=== PATIENT | male | born 1955 | race African-American/Black ===

== ENCOUNTER 2018-06-13 05:55 | Emergency (ER) | payer MEDICAID ==
[~2018-06-13] VITALS: Ht 180.3 cm; Wt 72.7 kg
[2018-06-13 05:59] VITALS: Ht 180.3 cm; Wt 72.7 kg
--- NOTE | 2018-06-13 07:09 | ERD ---
ER Documentation Chief Complaint Chief Complaint bib [id number], found lying in the sidewalk, etoh HPI 63-year-old male who presents to the emergency room after being found laying on the sidewalk. Patient reports drinking alcohol earlier this evening. He states that he is homeless. He denies any falls or injury. The patient has no complaints currently. He denies any suicidal or homicidal ideation. He just states hunger. No other issues are noted. ROS All systems reviewed and are negative except as per history of present illness. Allergies Allergies: Coded Allergies: No Known Drug Allergies (Verified Allergy, Unknown, 06/13/18) FmHx Family History: No diabetes Physical Exam Vitals Vital Signs Date Temp Pulse Resp B/P (MAP) Pulse Ox O2 O2 Flow FiO2 Time Delivery Rate 06/13/18 98.3 82 18 143/94 100 05:59 (110) Physical Exam General: Well developed, well nourished, no acute distress, smells of alcohol Head: Normocephalic, atraumatic. Eyes: Pupils equally reactive, EOM intact ENT: Moist mucous membranes Neck: Supple, no lymphadenopathy Respiratory: Lungs clear bilaterally, no distress Cardiovascular: RRR, no murmurs, rubs, or gallops Abdominal: Soft, non-tender, non-distended, no peritoneal signs : Deferred MSK: No edema, no unilateral swelling, 5/5 strength Neurologic: Alert and oriented, moving all extremities, normal speech, no focal weakness, no cerebellar signs Skin: No rash, no obvious evidence of trauma Psych: Normal mood, no suicidal ideation Procedures/MDM EKG, MONITORS, & DIAGNOSTIC IMAGING: None Required PROCEDURES: None Required MEDICAL DECISION MAKING: The patient's presentation is consistent with acute alcohol intoxication, mild and resolving. No evidence of traumatic injury. I have a much lower clinical concern for clinically significant traumatic brain injury, meningitis, significant electrolyte disturbance. The patient's workup will include a medical screening examination as well as observation for sobriety. The patient's presentation is most consistent with acute alcohol intoxication leading to acute encephalopathy. The patient is protecting their airway. The patient has no signs or symptoms concerning for impending respiratory failure and does not require intubation at this time. The patient will require observation in the emergency room to allow for metabolization. Once the patient is able to ambulate on their own accord, navigate the community the patient can be safely discharged from the emergency room. ER COURSE: Patient is asymptomatic in the emergency room setting. He will be given food. Home was discharged will be initiated and geriatric social work professor consultation has been made. OBSERVATION: Observation Note: Indication: Alcohol Intoxication Duration: Greater than 4 hours Family history: As above The patient was observed with serial exams over the above timeframe. The patient continued to be well-appearing, and observation continued without complication. CONSULTATION: director of managed services DISPOSITION PLAN: Patient is appropriate, ambulatory, awaiting geriatric social work professor evaluation. Departure Diagnosis: Primary Impression: Acute alcohol intoxication Complication of substance-induced condition: uncomplicated Qualified Codes: F10.920 - Alcohol use, unspecified with intoxication, uncomplicated Additional Impressions: Homelessness Hunger Encounter type: initial encounter Qualified Codes: T73.0XXA - Starvation, initial encounter Condition: Stable RONNELL CRUZ MD Jun 13, 2018 07:09
[2018-06-13 11:00] VITALS: BP 136/74; PULSE 86; RESP 20
[2018-06-13] MEDS ORDERED: LEVE100018 PO (16:44)
[2018-06-13] MEDS ORDERED: PHEN300C2 PO (16:45)
[2018-06-13] MEDS ORDERED: LEVE-5 PO (18:37)
== END 2018-06-13 11:00 | disposition home or self-care (01) ==
LOC: E/R 05:55
DX: F10.920 Alcohol use, unspecified with intoxication, uncomplicated (principal); R40.2142 Coma scale, eyes open, spontaneous, at arrival to emergency department; R40.2362 Coma scale, best motor response, obeys commands, at arrival to emergency department; R40.2252 Coma scale, best verbal response, oriented, at arrival to emergency department; T73.0XXA Starvation, initial encounter; Z59.0 Homelessness
CPT/HCPCS: 99283

== ENCOUNTER 2018-06-13 13:41 | Inpatient (IN) | payer MEDICAID ==
[~2018-06-13] VITALS: Ht 180.3 cm; Wt 64.5 kg
[2018-06-13] MEDS ORDERED: SOD CHLORIDE 0.9% 500 ML IV STA (13:48)
[2018-06-13] MEDS ORDERED: LEVETIRACETAM 1000 MG (PMX) 100 ML IVPB ONE (16:00)
[2018-06-13] MEDS ORDERED: LEVE100018 PO (16:44)
[2018-06-13] MEDS ORDERED: PHEN300C2 PO (16:45)
[2018-06-13] MEDS ORDERED: ALBUTEROL/IPRATROPIUM (NEB) 3 ML AMP HHN PRN (18:00)
[2018-06-13] MEDS ORDERED: morphine 2 MG INJ IV PRN (18:00)
[2018-06-13] MEDS ORDERED: DOCUSATE SODIUM 100 MG CAP PO PRN (18:00)
[2018-06-13] MEDS ORDERED: ONDANSETRON 4 MG INJ IV PRN ×2 (18:00→18:30)
[2018-06-13] MEDS ORDERED: NACL 0.9% 3 ML SYG IV SCH (18:00)
[2018-06-13] MEDS ORDERED: LORAZEPAM 2 MG INJ IV PRN (18:00)
[2018-06-13] MEDS ORDERED: NITROGLYCERIN (SL) 0.4 MG TAB SL PRN (18:00)
[2018-06-13] MEDS ORDERED: ACETAMINOPHEN 325 MG TAB PO PRN ×2 (18:00→18:30)
[2018-06-13] MEDS ORDERED: MAGNESIUM HYDROXIDE 30ML CUP PO PRN (18:00)
[2018-06-13] MEDS ORDERED: HYDROCODONE/APAP (5/325) TAB PO PRN (18:00)
[2018-06-13] MEDS ORDERED: hydrALAzine 20 MG INJ IV PRN (18:00)
[2018-06-13] MEDS ORDERED: LEVE-5 PO (18:37)
--- NOTE | 2018-06-13 19:20 | ERD ---
ER Documentation Chief Complaint Chief Complaint MEGAN D/T WITNESSED SEIZURE HPI This is a 63-year-old male with a past medical history of a seizure disorder brought in by ambulance for the second time today after a witnessed breakthrough seizure. The patient was reportedly found lying on the sidewalk this morning. He admitted to drinking a few beers last night. He is not confused when he arrived this morning. He reported that he was tired and hungry and had no other complaints. The patient did not report a seizure disorder this morning and instead preferred discharge. He was observed for at least 4 hours. He was ambulatory without issue and was discharged in stable condition. 1-2 hours after discharge, the patient reportedly had a witnessed tonic-clonic shaking event. It lasted 1-2 minutes before resolving on its own. The patient fell forward and struck his head. He sustained hematomas and abrasions to the left eyelid and right lower lip. The patient was reportedly confused after the event, but he is alert and oriented now. He has no focal deficits. He has no weakness or numbness or tingling to the face or extremities. The patient endorses drinking approximately 2 peers daily. He does not endorse significant alcohol abuse. He does admit to polysubstance abuse. He denies tobacco use. The patient reports difficulty with compliance of his seizure medications due to homelessness. He has not had an opportunity to follow-up with a neurologist in quite some time, and he typically gets his prescriptions from the emergency department. The patient has been out of his antiseizure medications for the last 1-2 days. The patient denies feeling sick recently. The patient denies fever or chills. The patient has had no headache or vision changes. The patient does not endorse neck or back pain. The patient denies lightheadedness or dizziness. The patient has had no chest pain or trouble breathing. The patient denies nausea or vomiting. The patient denies abdominal pain. The patient denies changes to bowel movements or urination. ROS All systems reviewed and are negative except as per history of present illness. Medications Home Meds Reported Medications Phenytoin* Sodium Extended (Dilantin*) 300 Mg Capsule, 300 MG PO HS, CAP 06/13/18 Levetiracetam* (Keppra*) 1,000 Mg Tablet, 1000 MG PO BID, TAB 06/13/18 Allergies Allergies: Coded Allergies: No Known Drug Allergies (Verified Allergy, Unknown, 06/13/18) PMhx/Soc Medical and Surgical Hx: pt denies Surgical Hx History of Surgery: No Hx Neurological Disorder: Yes Hx Respiratory Disorders: No (Seizure disorder) Hx Cardiac Disorders: No Hx Psychiatric Problems: No Hx Miscellaneous Medical Probl: No Hx Alcohol Use: Yes (Reportedly occasional) Hx Substance Use: Yes (Polysubstance abuse) Hx Tobacco Use: No FmHx Family History: No diabetes Physical Exam Vitals Vital Signs Date Temp Pulse Resp B/P (MAP) Pulse Ox O2 O2 Flow FiO2 Time Delivery Rate 06/13/18 98.4 88 16 140/89 95 Room Air 15:30 (106) 06/13/18 98.4 99 16 144/86 97 13:45 (105) Physical Exam Const: No apparent distress, well-developed, well-nourished Head: Normocephalic. Left eyebrow hematoma. Right lower lip hematoma. Eyes: Normal Conjunctiva. Extraocular movements intact. Pupils equal, round and reactive to light ENT: Normal External Ears, Nose and Mouth. Neck: Full range of motion. No meningismus. Resp: Clear to auscultation bilaterally, No wheezes, rales or rhonchi Cardio: Regular rate and rhythm. No murmurs, rubs or gallops Abd: Soft, non tender, non distended. Normal bowel sounds Skin: No petechiae or rashes Back: No midline tenderness. No CVA tenderness Ext: No cyanosis, or edema Neur: Awake and alert, oriented 4. Cranial nerves intact. No facial droop. Normal strength, sensation and coordination. Psych: Normal Mood and Affect Result Diagram: 06/13/18 1401 06/13/18 1401 Results 24 hrs Laboratory Tests Test 06/13/18 14:01 06/13/18 15:38 White Blood Count 7.2 10^3/ul Red Blood Count 4.65 10^6/ul Hemoglobin 12.7 g/dl Hematocrit 39.9 % Mean Corpuscular Volume 85.8 fl Mean Corpuscular Hemoglobin 27.3 pg Mean Corpuscular Hemoglobin Concent 31.8 g/dl Red Cell Distribution Width 12.8 % Platelet Count 142 10^3/UL Mean Platelet Volume 11.7 fl Immature Granulocytes % 0.600 % Neutrophils % 71.7 % Lymphocytes % 14.3 % Monocytes % 10.8 % Eosinophils % 2.2 % Basophils % 0.4 % Nucleated Red Blood Cells % 0.0 /100WBC Immature Granulocytes # 0.040 10^3/ul Neutrophils # 5.2 10^3/ul Lymphocytes # 1.0 10^3/ul Monocytes # 0.8 10^3/ul Eosinophils # 0.2 10^3/ul Basophils # 0.0 10^3/ul Nucleated Red Blood Cells # 0.0 10^3/ul Prothrombin Time 12.4 Sec Prothrombin Time Ratio 1.0 INR International Normalized Ratio 0.91 Sodium Level 140 mmol/L Potassium Level 3.9 mmol/L Chloride Level 103 mmol/L Carbon Dioxide Level 23 mmol/L Anion Gap 14 Blood Urea Nitrogen 15 mg/dl Creatinine 0.81 mg/dl Est Glomerular Filtrat Rate mL/min > 60 mL/min Glucose Level 93 mg/dl Calcium Level 9.1 mg/dl Total Bilirubin 0.2 mg/dl Direct Bilirubin 0.00 mg/dl Indirect Bilirubin 0.2 mg/dl Aspartate Amino Transf (AST/SGOT) 61 IU/L Alanine Aminotransferase (ALT/SGPT) 25 IU/L Alkaline Phosphatase 122 IU/L Total Protein 6.9 g/dl Albumin 3.6 g/dl Globulin 3.30 g/dl Albumin/Globulin Ratio 1.09 Free Thyroxine 2.05 ng/dl Phenytoin (Dilantin) Level < 3.0 ug/ml Valproic Acid (Depakene) Level < 10 ug/ml Ethyl Alcohol Level < 10.0 mg/dl Urine Color YELLOW Urine Clarity CLEAR Urine pH 6.0 Urine Specific [place] 1.012 Urine Ketones NEGATIVE mg/dL Urine Nitrite NEGATIVE mg/dL Urine Bilirubin NEGATIVE mg/dL Urine Urobilinogen 2+ mg/dL Urine Leukocyte Esterase NEGATIVE Sintia/ul Urine Microscopic RBC 4 /HPF Urine Microscopic WBC 4 /HPF Urine Bacteria FEW /HPF Urine Mucus FEW /HPF Urine Hemoglobin 1+ mg/dL Urine Glucose NEGATIVE mg/dL Urine Total Protein NEGATIVE mg/dl Urine Opiates Screen Negative Urine Barbiturates Negative Urine Amphetamines Screen POSITIVE Urine Benzodiazepines Screen Negative Urine Cocaine Screen Positive Urine Cannabinoids Negative Current Medications Medications Dose Sig/Shaka Start Time Status Last (Trade) Ordered Route PRN Stop Time Admin Dose Reason Admin Sodium 500 ml @ Q1H STAT 06/13/18 DC 06/13/18 Chloride 500 mls/hr IV 13:48 06/13/18 14:05 14:47 100 ml @ ONCE ONCE 06/13/18 DC 06/13/18 Levetiracetam 400 mls/hr IVPB 16:00 06/13/18 16:20 16:14 IV Flush 3 ml PER 06/13/18 (NS 3 ml) PROTOCOL IV 18:00 Ondansetron 4 mg Q6H PRN 06/13/18 HCl (Zofran IV 18:00 Inj) NAUSEA/VOMITI NG 650 mg Q6H PRN 06/13/18 Acetaminophen PO .PAIN 1-3 18:00 (Tylenol OR TEMP Tab) 1 tab Q6H PRN 06/13/18 Acetaminophen PO .MOD PAIN 18:00 / 4-6 Hydrocodone Bitart ([place] (5/325)) Morphine 2 mg Q4H PRN 06/13/18 Sulfate IV .SEVERE 18:00 (morphine) PAIN 7-10 Docusate 100 mg Q12H PRN 06/13/18 Sodium PO 18:00 (Colace) .CONSTIPATION Magnesium 30 ml DAILY PRN 06/13/18 Hydroxide PO 18:00 (Milk Of Mag) .CONSTIPATION Heparin 5,000 unit Q12 SC 06/13/18 Sodium 21:00 (Porcine) (Heparin (5000 Units/1ml)) Sodium 1,000 ml @ [id number] IV 06/13/18 Chloride 75 mls/hr 17:33 Lorazepam 0.5 mg Q6H PRN 06/13/18 (Ativan) IV ANXIETY 18:00 Albuterol/ 3 ml Q4H RESP 06/13/18 Ipratropium THERAPY PRN 18:00 (Duoneb) HHN SHORTNESS OF BREATH Hydralazine 10 mg Q6H PRN 06/13/18 HCl IV ELEVATED 18:00 (Apresoline) BLOOD PRESSURE 1 tab Q5M PRN 06/13/18 Nitroglycerin SL ANGINA 18:00 (Nitroglyceri n (Sl Tab) 0.4 Mg) Phenytoin 300 mg HS PO 06/13/18 (Dilantin) 21:00 100 ml @ Q12 IVPB 06/13/18 DC Levetiracetam 400 mls/hr 21:00 06/13/18 21:00 100 ml @ Q12H IVPB 06/14/18 Levetiracetam 400 mls/hr 05:00 Ondansetron 4 mg ER BRIDGE 06/13/18 HCl (Zofran PRN IV 18:30 06/14/18 Inj) NAUSEA/VOMITI 18:29 NG 650 mg ER BRIDGE 06/13/18 Acetaminophen PRN PO 18:30 06/14/18 (Tylenol .MILD PAIN 18:29 Tab) 1-3 OR TEMP Procedures/MDM MDM The patient's presentation warrants further investigation. Previous medical records, if available, were reviewed. LABS The patient's laboratory testing was obtained and reviewed. No emergent treatment was required unless described below. CBC: No E/o of systemic infection or severe anemia or thrombocytopenia. Mild normocytic anemia, nonemergent Chemistry: No E/o severe acidosis or alkalosis or renal failure or diabetic ketoacidosis. Transaminitis, potentially reactive. PT/INR: No E/o significant coagulopathy Urine: No E/o acute infection or hematuria Tox: No E/o alcohol abuse. E/o amphetamine and cocaine abuse. No E/o sa licylate or acetaminophen use. IMAGING Imaging and Radiology interpretation reviewed. CXR FINDINGS: Cardiomediastinal silhouette appears normal. There are atherosclerotic calcifications in the thoracic aorta. Pulmonary vasculature appears normal. Lung vaughn appear clear. Costophrenic angles are well defined. Previous shoulder arthroplasty on the left. IMPRESSION: Atherosclerotic calcifications in the thoracic aorta. No evidence for active cardiopulmonary disease. Electronically viewed and signed by Physician Fabienne on 06/13/2018 14:36 CT Head FINDINGS: There is no intracranial hemorrhage, mass effect, or midline shift. No extra-axial fluid collection is seen. The ventricles and sulci are normal in size and configuration. The density of the brain is normal, and the ayala white matter differentiation appears well-preserved. The visualized paranasal sinuses and osseous structures are grossly unremarkable. IMPRESSION: No acute intracranial process identified. Electronically viewed and signed by Physician Fabienne on 06/13/2018 14:35 TREATMENT/DISPOSITION The patient presents for a seizure disorder with difficulty with compliance on his antiepileptic medications due to homelessness. While there is no witnessed seizure event this morning, I am concerned that this is the patient's second seizure today. The patient does endorse increasing seizure events over the last few weeks, most recently 1 week ago prior to the events this morning. I am co ncerned about the patient's methamphetamine and cocaine abuse, as possible etiologies of a decreased seizure threshold. The patient was given a bolus of Keppra and IV fluids in the emergency department. Given the patient's significant difficulty with maintenance of his seizure disorder in the outp atient setting, I am very concerned that the patient is at risk of trauma or injury if discharged. I no longer feel that he is safe for outpatient management and may benefit from inpatient treatment and possible neurology assessment. I do not suspect a metabolic etiology of his symptoms. I do not suspect a cardiopulmonary process. The patient CT scan does not reveal any evidence of cerebral ischemia or intracranial hemorrhage. I doubt an alternative neurologic etiology. I do not see evidence of an infectious process. At this time, I feel that the patient requires admission for further evaluation and management. The patient will be admitted to panel in accordance with the patient's insurance. The patient was accepted by Dr. Fall at 5:07 PM on June 13, 2018. Disclaimer: Inadvertent spelling and grammatical errors are likely due to EHR/dictation software use and do not reflect on the overall quality of patient care. Note that the electronic time recorded on this note does not necessarily reflect the actual time of the patient encounter. Departure Diagnosis: Primary Impression: Breakthrough seizure Additional Impressions: Seizure disorder Noncompliance with medications Methamphetamine abuse Cocaine abuse Normocytic anemia Transaminitis Condition: Serious MASOOD GILES MD Jun 13, 2018 19:08
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
[2018-06-13] MEDS: SOD CHLORIDE 0.45% 1,000 ML IV SCH (19:45)
[2018-06-13 21:00] VITALS: BP 145/84; PULSE 82; PULSE 84; RESP 20
[2018-06-13] MEDS ORDERED: LEVETIRACETAM 1000 MG (PMX) 100 ML IVPB SCH (21:00)
[2018-06-13 21:20] VITALS: Ht 180.3 cm; Wt 64.5 kg
[2018-06-13] MEDS: PHENYTOIN 100 MG CAP PO SCH (21:57)
[2018-06-13] MEDS: HEPARIN 5,000 UNIT/1 ML VIAL SC SCH (22:01)
[2018-06-14] VITALS (11 sets, daily range): BP systolic 120–151; BP diastolic 70–92; PULSE 71–90; RESP 18–20
[2018-06-14] MEDS ORDERED: LEVETIRACETAM 1000 MG (PMX) 100 ML IVPB SCH (05:00)
[2018-06-14] MEDS: SOD CHLORIDE 0.45% 1,000 ML IV SCH ×2 (06:53→08:55)
[2018-06-14] MEDS: HEPARIN 5,000 UNIT/1 ML VIAL SC SCH ×2 (09:01→20:45)
--- NOTE | 2018-06-14 10:37 | CONS ---
Assessment/Plan Assessment/Plan Hospital Course 63 M c/ longstanding Hx of epilepsy and other comorbidities, who presents for evaluation following a seizure cluster... He reports recent medication noncompliance -- the likely underlying cause of his seizure cluster.. Head CT is unrevealing UDS - cocaine and amphetamines UA neg Mg, Na, Gluc, Phos wnl P: Agree w/ resuming Keppra; at 500mg bid Load Dilantin 1g iv x1, then continue Dilantin 300mg hs Ativan iv prn prolonged seizure of cluster Encourage sobriety Other management per primary Consultation Date/Type/Reason Admit Date/Time Jun 13, 2018 at 18:15 Type of Consult Neurology Date/Time of Note DATE: 06/14/18 TIME: 10:37 Exam/Review of Systems Exam Vitals Vital Signs Date Temp Pulse Resp B/P (MAP) Pulse Ox O2 O2 Flow FiO2 Time Delivery Rate 06/14/18 86 08:00 06/14/18 98.3 20 140/85 97 Room Air 07:44 (103) Intake and Output 06/13/18 06/13/18 06/14/18 1515:00 23:00 07:00 IntakeIntake Total 856 ml OutputOutput Total 1000 ml BalanceBalance -144 ml Results Result Diagram: 06/14/18 0549 06/14/18 0549 Results 24hrs Laboratory Tests Test 06/13/18 14:01 06/13/18 15:38 06/14/18 05:49 White Blood Count 7.2 5.0 # Red Blood Count 4.65 L 4.38 L Hemoglobin 12.7 L 12.1 L Hematocrit 39.9 L 37.6 L Mean Corpuscular Volume 85.8 85.8 Mean Corpuscular Hemoglobin 27.3 L 27.6 L Mean Corpuscular Hemoglobin Concent 31.8 L 32.2 Red Cell Distribution Width 12.8 12.8 Platelet Count 142 126 L Mean Platelet Volume 11.7 H 12.0 H Immature Granulocytes % 0.600 H 0.400 Neutrophils % 71.7 51.4 Lymphocytes % 14.3 L 32.7 Monocytes % 10.8 11.7 H Eosinophils % 2.2 3.2 Basophils % 0.4 0.6 Nucleated Red Blood Cells % 0.0 0.0 Immature Granulocytes # 0.040 H 0.020 Neutrophils # 5.2 2.5 Lymphocytes # 1.0 1.6 Monocytes # 0.8 0.6 Eosinophils # 0.2 0.2 Basophils # 0.0 0.0 Nucleated Red Blood Cells # 0.0 0.0 Prothrombin Time 12.4 Prothrombin Time Ratio 1.0 INR International Normalized Ratio 0.91 Sodium Level 140 138 Potassium Level 3.9 3.6 Chloride Level 103 104 Carbon Dioxide Level 23 27 Anion Gap 14 H 7 Blood Urea Nitrogen 15 11 Creatinine 0.81 0.75 Est Glomerular Filtrat Rate mL/min > 60 > 60 Glucose Level 93 73 Calcium Level 9.1 8.6 Total Bilirubin 0.2 Direct Bilirubin 0.00 Indirect Bilirubin 0.2 Aspartate Amino Transf (AST/SGOT) 61 H Alanine Aminotransferase (ALT/SGPT) 25 Alkaline Phosphatase 122 H Total Protein 6.9 Albumin 3.6 Globulin 3.30 H Albumin/Globulin Ratio 1.09 Free Thyroxine 2.05 Phenytoin (Dilantin) Level < 3.0 L Valproic Acid (Depakene) Level < 10 L Ethyl Alcohol Level < 10.0 H Urine Color YELLOW Urine Clarity CLEAR Urine pH 6.0 Urine Specific [place] 1.012 Urine Ketones NEGATIVE Urine Nitrite NEGATIVE Urine Bilirubin NEGATIVE Urine Urobilinogen 2+ H Urine Leukocyte Esterase NEGATIVE Urine Microscopic RBC 4 Urine Microscopic WBC 4 Urine Bacteria FEW A Urine Mucus FEW A Urine Hemoglobin 1+ H Urine Glucose NEGATIVE Urine Total Protein NEGATIVE Urine Opiates Screen Negative Urine Barbiturates Negative Urine Amphetamines Screen POSITIVE Urine Benzodiazepines Screen Negative Urine Cocaine Screen Positive Urine Cannabinoids Negative Hemoglobin A1c 5.3 Phosphorus Level 3.9 Magnesium Level 1.8 Triglycerides Level 65 Cholesterol Level 157 LDL Cholesterol, Calculated 72 HDL Cholesterol 72 Cholesterol/HDL Ratio 2.1 Thyroid Stimulating Hormone (TSH) 0.841 Medications Medication Current Medications IV Flush (NS 3 ml) 3 ml PER PROTOCOL IV ; Start 06/13/18 at 18:00 Ondansetron HCl (Zofran Inj) 4 mg Q6H PRN IV NAUSEA/VOMITING; Start 06/13/18 at 18:00 Acetaminophen (Tylenol Tab) 650 mg Q6H PRN PO .PAIN 1-3 OR TEMP; Start 06/13/18 at 18:00 Acetaminophen/ Hydrocodone Bitart ([place] (5/325)) 1 tab Q6H PRN PO .MOD PAIN 4- 6; Start 06/13/18 at 18:00 Morphine Sulfate (morphine) 2 mg Q4H PRN IV .SEVERE PAIN 7-10 Last administered on 06/13/18at 19:45; Admin Dose 2 MG; Start 06/13/18 at 18:00 Docusate Sodium (Colace) 100 mg Q12H PRN PO .CONSTIPATION; Start 06/13/18 at 18:00 Magnesium Hydroxide (Milk Of Mag) 30 ml DAILY PRN PO .CONSTIPATION; Start 06/13/18 at 18:00 Heparin Sodium (Porcine) (Heparin (5000 Units/1ml)) 5,000 unit Q12 SC Last administered on 06/14/18at 09:01; Admin Dose 5,000 UNIT; Start 06/13/18 at 21:00 Sodium Chloride 1,000 ml @ 75 mls/hr [id number] IV Last administered on 06/14/18at 08:55; Admin Dose 75 MLS/HR; Start 06/13/18 at 17:33 Lorazepam (Ativan) 0.5 mg Q6H PRN IV ANXIETY; Start 06/13/18 at 18:00 Albuterol/ Ipratropium (Duoneb) 3 ml Q4H RESP THERAPY PRN HHN SHORTNESS OF BREATH; Start 06/13/18 at 18:00 Hydralazine HCl (Apresoline) 10 mg Q6H PRN IV ELEVATED BLOOD PRESSURE; Start 06/13/18 at 18:00 Nitroglycerin (Nitroglycerin (Sl Tab) 0.4 Mg) 1 tab Q5M PRN SL ANGINA; Start 06/13/18 at 18:00 Phenytoin (Dilantin) 300 mg HS PO Last administered on 06/13/18at 21:57; Admin Dose 300 MG; Start 06/13/18 at 21:00 Levetiracetam 100 ml @ 400 mls/hr Q12H IVPB Last administered on 06/14/18at 04:19; Admin Dose 400 MLS/HR; Start 06/14/18 at 05:00 Ondansetron HCl (Zofran Inj) 4 mg ER BRIDGE PRN IV NAUSEA/VOMITING; Start 06/13/18 at 18:30; Stop 06/14/18 at 18:29 Acetaminophen (Tylenol Tab) 650 mg ER BRIDGE PRN PO .MILD PAIN 1-3 OR TEMP; Start 06/13/18 at 18:30; Stop 06/14/18 at 18:29 Past Medical History Home Meds Reported Medications Levetiracetam* (Keppra*) 500 Mg Tablet, 500 MG PO BID, TAB 06/13/18 Phenytoin* Sodium Extended (Dilantin*) 300 Mg Capsule, 300 MG PO HS, CAP 06/13/18 Discontinued Reported Medications Levetiracetam* (Keppra*) 1,000 Mg Tablet, 1000 MG PO BID, TAB 06/13/18 Medications Current Medications IV Flush (NS 3 ml) 3 ml PER PROTOCOL IV ; Start 06/13/18 at 18:00 Ondansetron HCl (Zofran Inj) 4 mg Q6H PRN IV NAUSEA/VOMITING; Start 06/13/18 at 18:00 Acetaminophen (Tylenol Tab) 650 mg Q6H PRN PO .PAIN 1-3 OR TEMP; Start 06/13/18 at 18:00 Acetaminophen/ Hydrocodone Bitart ([place] (5/325)) 1 tab Q6H PRN PO .MOD PAIN 4- 6; Start 06/13/18 at 18:00 Morphine Sulfate (morphine) 2 mg Q4H PRN IV .SEVERE PAIN 7-10 Last administered on 06/13/18at 19:45; Admin Dose 2 MG; Start 06/13/18 at 18:00 Docusate Sodium (Colace) 100 mg Q12H PRN PO .CONSTIPATION; Start 06/13/18 at 18:00 Magnesium Hydroxide (Milk Of Mag) 30 ml DAILY PRN PO .CONSTIPATION; Start 06/13/18 at 18:00 Heparin Sodium (Porcine) (Heparin (5000 Units/1ml)) 5,000 unit Q12 SC Last administered on 06/14/18at 09:01; Admin Dose 5,000 UNIT; Start 06/13/18 at 21:00 Sodium Chloride 1,000 ml @ 75 mls/hr [id number] IV Last administered on 06/14/18at 08:55; Admin Dose 75 MLS/HR; Start 06/13/18 at 17:33 Lorazepam (Ativan) 0.5 mg Q6H PRN IV ANXIETY; Start 06/13/18 at 18:00 Albuterol/ Ipratropium (Duoneb) 3 ml Q4H RESP THERAPY PRN HHN SHORTNESS OF BREATH; Start 06/13/18 at 18:00 Hydralazine HCl (Apresoline) 10 mg Q6H PRN IV ELEVATED BLOOD PRESSURE; Start 06/13/18 at 18:00 Nitroglycerin (Nitroglycerin (Sl Tab) 0.4 Mg) 1 tab Q5M PRN SL ANGINA; Start 06/13/18 at 18:00 Phenytoin (Dilantin) 300 mg HS PO Last administered on 06/13/18at 21:57; Admin Dose 300 MG; Start 06/13/18 at 21:00 Levetiracetam 100 ml @ 400 mls/hr Q12H IVPB Last administered on 06/14/18at 04:19; Admin Dose 400 MLS/HR; Start 06/14/18 at 05:00 Ondansetron HCl (Zofran Inj) 4 mg ER BRIDGE PRN IV NAUSEA/VOMITING; Start 06/13/18 at 18:30; Stop 06/14/18 at 18:29 Acetaminophen (Tylenol Tab) 650 mg ER BRIDGE PRN PO .MILD PAIN 1-3 OR TEMP; Start 06/13/18 at 18:30; Stop 06/14/18 at 18:29 Allergies: Coded Allergies: No Known Drug Allergies (Verified Allergy, Unknown, 06/13/18) Social History Smoking Status: Current every day smoker SHELLI SCOTT NP Jun 14, 2018 10:37 JUAN DUMAS Jun 14, 2018 12:08
--- NOTE | 2018-06-14 11:43 | PN ---
Date/Time of Note Date/Time of Note DATE: 06/14/18 TIME: 11:38 Assessment/Plan VTE Prophylaxis Risk score (from Ns)>0 risk: 1 SCD applied (from Ns): No SCD contraindicated: other Pharmacological prophylaxis: heparin Lines/Catheters IV Catheter Type (from [facility]): Peripheral IV Urinary Cath still in place: No Assessment/Plan Hospital Course S: Per nursing staff patient had no seizure activity overnight nor this morning. Seen by neurology team this morning. Waiting for EEG to be performed. O: VS - see below PHYSICAL EXAMINATION: GENERAL: lying in bed, answering questions appropriately. He has a bandage on the side of his head; otherwise in no acute distress HEENT: Pupils are equal, round, react to light. Extraocular muscles are intact. NECK: Supple. No thyromegaly. LUNGS: Clear to auscultation bilaterally. CARDIOVASCULAR: S1, S2 heard. No rubs or gallops. ABDOMEN: Soft, nontender, nondistended. Normal bowel sounds. No rebound or guarding. MUSCULOSKELETAL: No lower extremity edema bilaterally. NEUROLOGIC: No focal deficits. ASSESSMENT AND PLAN: 63-year-old male coming in with seizure activity 2 separate times today with positive methamphetamine and cocaine use and not taking his seizure medicines for at least the last 2 weeks. 1. Seizure activity-none presently seen while patient has been in the hospital, seen by neurology team this morning -For now neuro checks every 4 hours. -Follow-up results of EEG, and recommendations from neurology consult. -Continue Keppra IV for now. Ativan p.r.n. breakthrough seizures. - Also, continue Dilantin for now. 2. History of hypertension. Blood pressure is stable. - Continue hydralazine p.r.n. -We will start low-dose Norvasc, but also try to get the list of the patient's home blood pressure medications as well. 3. Deep venous thrombosis prophylaxis, heparin subcutaneously. Result Diagram: 06/14/18 0549 06/14/18 0549 Results 24hrs Laboratory Tests Test 06/13/18 14:01 06/13/18 15:38 06/14/18 05:49 White Blood Count 7.2 5.0 # Red Blood Count 4.65 L 4.38 L Hemoglobin 12.7 L 12.1 L Hematocrit 39.9 L 37.6 L Mean Corpuscular Volume 85.8 85.8 Mean Corpuscular Hemoglobin 27.3 L 27.6 L Mean Corpuscular Hemoglobin Concent 31.8 L 32.2 Red Cell Distribution Width 12.8 12.8 Platelet Count 142 126 L Mean Platelet Volume 11.7 H 12.0 H Immature Granulocytes % 0.600 H 0.400 Neutrophils % 71.7 51.4 Lymphocytes % 14.3 L 32.7 Monocytes % 10.8 11.7 H Eosinophils % 2.2 3.2 Basophils % 0.4 0.6 Nucleated Red Blood Cells % 0.0 0.0 Immature Granulocytes # 0.040 H 0.020 Neutrophils # 5.2 2.5 Lymphocytes # 1.0 1.6 Monocytes # 0.8 0.6 Eosinophils # 0.2 0.2 Basophils # 0.0 0.0 Nucleated Red Blood Cells # 0.0 0.0 Prothrombin Time 12.4 Prothrombin Time Ratio 1.0 INR International Normalized Ratio 0.91 Sodium Level 140 138 Potassium Level 3.9 3.6 Chloride Level 103 104 Carbon Dioxide Level 23 27 Anion Gap 14 H 7 Blood Urea Nitrogen 15 11 Creatinine 0.81 0.75 Est Glomerular Filtrat Rate mL/min > 60 > 60 Glucose Level 93 73 Calcium Level 9.1 8.6 Total Bilirubin 0.2 Direct Bilirubin 0.00 Indirect Bilirubin 0.2 Aspartate Amino Transf (AST/SGOT) 61 H Alanine Aminotransferase (ALT/SGPT) 25 Alkaline Phosphatase 122 H Total Protein 6.9 Albumin 3.6 Globulin 3.30 H Albumin/Globulin Ratio 1.09 Free Thyroxine 2.05 Phenytoin (Dilantin) Level < 3.0 L Valproic Acid (Depakene) Level < 10 L Ethyl Alcohol Level < 10.0 H Urine Color YELLOW Urine Clarity CLEAR Urine pH 6.0 Urine Specific [place] 1.012 Urine Ketones NEGATIVE Urine Nitrite NEGATIVE Urine Bilirubin NEGATIVE Urine Urobilinogen 2+ H Urine Leukocyte Esterase NEGATIVE Urine Microscopic RBC 4 Urine Microscopic WBC 4 Urine Bacteria FEW A Urine Mucus FEW A Urine Hemoglobin 1+ H Urine Glucose NEGATIVE Urine Total Protein NEGATIVE Urine Opiates Screen Negative Urine Barbiturates Negative Urine Amphetamines Screen POSITIVE Urine Benzodiazepines Screen Negative Urine Cocaine Screen Positive Urine Cannabinoids Negative Hemoglobin A1c 5.3 Phosphorus Level 3.9 Magnesium Level 1.8 Triglycerides Level 65 Cholesterol Level 157 LDL Cholesterol, Calculated 72 HDL Cholesterol 72 Cholesterol/HDL Ratio 2.1 Thyroid Stimulating Hormone (TSH) 0.841 Exam/Review of Systems Exam Vitals Vital Signs Date Temp Pulse Resp B/P (MAP) Pulse Ox O2 O2 Flow FiO2 Time Delivery Rate 06/14/18 98.1 75 20 145/86 98 Room Air 11:26 (105) Intake and Output 06/13/18 06/13/18 06/14/18 1515:00 23:00 07:00 IntakeIntake Total 856 ml OutputOutput Total 1000 ml BalanceBalance -144 ml Results Results 24hrs Laboratory Tests Test 06/13/18 14:01 06/13/18 15:38 06/14/18 05:49 White Blood Count 7.2 5.0 # Red Blood Count 4.65 L 4.38 L Hemoglobin 12.7 L 12.1 L Hematocrit 39.9 L 37.6 L Mean Corpuscular Volume 85.8 85.8 Mean Corpuscular Hemoglobin 27.3 L 27.6 L Mean Corpuscular Hemoglobin Concent 31.8 L 32.2 Red Cell Distribution Width 12.8 12.8 Platelet Count 142 126 L Mean Platelet Volume 11.7 H 12.0 H Immature Granulocytes % 0.600 H 0.400 Neutrophils % 71.7 51.4 Lymphocytes % 14.3 L 32.7 Monocytes % 10.8 11.7 H Eosinophils % 2.2 3.2 Basophils % 0.4 0.6 Nucleated Red Blood Cells % 0.0 0.0 Immature Granulocytes # 0.040 H 0.020 Neutrophils # 5.2 2.5 Lymphocytes # 1.0 1.6 Monocytes # 0.8 0.6 Eosinophils # 0.2 0.2 Basophils # 0.0 0.0 Nucleated Red Blood Cells # 0.0 0.0 Prothrombin Time 12.4 Prothrombin Time Ratio 1.0 INR International Normalized Ratio 0.91 Sodium Level 140 138 Potassium Level 3.9 3.6 Chloride Level 103 104 Carbon Dioxide Level 23 27 Anion Gap 14 H 7 Blood Urea Nitrogen 15 11 Creatinine 0.81 0.75 Est Glomerular Filtrat Rate mL/min > 60 > 60 Glucose Level 93 73 Calcium Level 9.1 8.6 Total Bilirubin 0.2 Direct Bilirubin 0.00 Indirect Bilirubin 0.2 Aspartate Amino Transf (AST/SGOT) 61 H Alanine Aminotransferase (ALT/SGPT) 25 Alkaline Phosphatase 122 H Total Protein 6.9 Albumin 3.6 Globulin 3.30 H Albumin/Globulin Ratio 1.09 Free Thyroxine 2.05 Phenytoin (Dilantin) Level < 3.0 L Valproic Acid (Depakene) Level < 10 L Ethyl Alcohol Level < 10.0 H Urine Color YELLOW Urine Clarity CLEAR Urine pH 6.0 Urine Specific [place] 1.012 Urine Ketones NEGATIVE Urine Nitrite NEGATIVE Urine Bilirubin NEGATIVE Urine Urobilinogen 2+ H Urine Leukocyte Esterase NEGATIVE Urine Microscopic RBC 4 Urine Microscopic WBC 4 Urine Bacteria FEW A Urine Mucus FEW A Urine Hemoglobin 1+ H Urine Glucose NEGATIVE Urine Total Protein NEGATIVE Urine Opiates Screen Negative Urine Barbiturates Negative Urine Amphetamines Screen POSITIVE Urine Benzodiazepines Screen Negative Urine Cocaine Screen Positive Urine Cannabinoids Negative Hemoglobin A1c 5.3 Phosphorus Level 3.9 Magnesium Level 1.8 Triglycerides Level 65 Cholesterol Level 157 LDL Cholesterol, Calculated 72 HDL Cholesterol 72 Cholesterol/HDL Ratio 2.1 Thyroid Stimulating Hormone (TSH) 0.841 Medications Medication Current Medications IV Flush (NS 3 ml) 3 ml PER PROTOCOL IV ; Start 06/13/18 at 18:00 Ondansetron HCl (Zofran Inj) 4 mg Q6H PRN IV NAUSEA/VOMITING; Start 06/13/18 at 18:00 Acetaminophen (Tylenol Tab) 650 mg Q6H PRN PO .PAIN 1-3 OR TEMP; Start 06/13/18 at 18:00 Acetaminophen/ Hydrocodone Bitart ([place] (5/325)) 1 tab Q6H PRN PO .MOD PAIN 4- 6; Start 06/13/18 at 18:00 Morphine Sulfate (morphine) 2 mg Q4H PRN IV .SEVERE PAIN 7-10 Last administered on 06/13/18at 19:45; Admin Dose 2 MG; Start 06/13/18 at 18:00 Docusate Sodium (Colace) 100 mg Q12H PRN PO .CONSTIPATION; Start 06/13/18 at 1 8:00 Magnesium Hydroxide (Milk Of Mag) 30 ml DAILY PRN PO .CONSTIPATION; Start 06/13/18 at 18:00 Heparin Sodium (Porcine) (Heparin (5000 Units/1ml)) 5,000 unit Q12 SC Last administered on 06/14/18at 09:01; Admin Dose 5,000 UNIT; Start 06/13/18 at 21:00 Sodium Chloride 1,000 ml @ 75 mls/hr [id number] IV Last administered on 06/14/18at 08:55; Admin Dose 75 MLS/HR; Start 06/13/18 at 17:33 Lorazepam (Ativan) 0.5 mg Q6H PRN IV ANXIETY; Start 06/13/18 at 18:00 Albuterol/ Ipratropium (Duoneb) 3 ml Q4H RESP THERAPY PRN HHN SHORTNESS OF BREATH; Start 06/13/18 at 18:00 Hydralazine HCl (Apresoline) 10 mg Q6H PRN IV ELEVATED BLOOD PRESSURE; Start 06/13/18 at 18:00 Nitroglycerin (Nitroglycerin (Sl Tab) 0.4 Mg) 1 tab Q5M PRN SL ANGINA; Start 06/13/18 at 18:00 Phenytoin (Dilantin) 300 mg HS PO Last administered on 06/13/18at 21:57; Admin Dose 300 MG; Start 06/13/18 at 21:00 Levetiracetam 100 ml @ 400 mls/hr Q12H IVPB Last administered on 06/14/18at 04:19; Admin Dose 400 MLS/HR; Start 06/14/18 at 05:00 Ondansetron HCl (Zofran Inj) 4 mg ER BRIDGE PRN IV NAUSEA/VOMITING; Start 06/13/18 at 18:30; Stop 06/14/18 at 18:29 Acetaminophen (Tylenol Tab) 650 mg ER BRIDGE PRN PO .MILD PAIN 1-3 OR TEMP; Start 06/13/18 at 18:30; Stop 06/14/18 at 18:29 Phenytoin 1000 mg/ Sodium Chloride 120 ml @ 240 mls/hr ONCE ONCE IV ; Start 06/14/18 at 12:00; Stop 06/14/18 at 12:29 MARC WHIPPLE Jun 14, 2018 11:42
[2018-06-14] MEDS ORDERED: PHENYTOIN 1,000 MG in SOD CHLORIDE 0.9% 100 ML IV ONE (12:00)
[2018-06-14] MEDS: AMLODIPINE 2.5 MG TAB PO SCH (12:52)
[2018-06-14] MEDS ORDERED: LORAZEPAM 2 MG INJ IV PRN (14:00)
[2018-06-14] MEDS: PHENYTOIN 100 MG CAP PO SCH (20:42)
[2018-06-14] MEDS: LEVETIRACETAM 500 MG TAB PO SCH (20:42)
[2018-06-15] VITALS (11 sets, daily range): BP systolic 136–159; BP diastolic 73–94; PULSE 72–88; RESP 20–22
--- NOTE | 2018-06-15 06:11 | EEG ---
EEG NOTE Report Details DATE OF TEST: 06/14/18 HISTORY: The patient is a 63-year-old M who presents following seizures. This EEG is requested to rule out nonconvulsive status epilepticus. SEDATION: None. CONDITIONS OF RECORDING: This EEG was recorded digitally on the [employer] machine, using the International 10-20 System of electrodes plus anterior temporals and [place]. STATES SAMPLED: Lethargic. FINDINGS: The background is grossly continuous...and symmetric...predominated by polymorphic theta and delta activity. A well-formed posterior dominant rhythm is absent.. The normal [id number] frequency-amplitude gradient was absent. Photic stimulation does not elicit any definite driving responses or epileptiform discharges. Hyperventilation was not performed. The patient passed into sleep, reaching stage II, characterized by normal and symmetrical vertex waves and spindles. No focal abnormalities or epileptiform discharges were seen. IMPRESSION: Abnormal electroencephalogram due to: moderate diffuse slowing. COMMENT: The slowing of the background indicates moderate, diffuse cortical dysfunction of nonspecific etiology. JUAN DUMAS Jun 15, 2018 06:11
[2018-06-15] MEDS: LEVETIRACETAM 500 MG TAB PO SCH ×2 (08:16→20:28)
[2018-06-15] MEDS: HEPARIN 5,000 UNIT/1 ML VIAL SC SCH ×2 (08:17→20:30)
[2018-06-15] MEDS: AMLODIPINE 2.5 MG TAB PO SCH (09:57)
[2018-06-15] MEDS ORDERED: METF-849 PO (11:11)
--- NOTE | 2018-06-15 11:44 | PN ---
Date/Time of Note Date/Time of Note DATE: 06/15/18 TIME: 11:40 Assessment/Plan VTE Prophylaxis Risk score (from Ns)>0 risk: 4 SCD applied (from Ns): No SCD contraindicated: other Pharmacological prophylaxis: heparin Lines/Catheters IV [facility] [place] Urinary Cath still in place: No Assessment/Plan Hospital Course S: Per nursing staff patient had one possible seizure event yesterday, given Ativan for that. Seen by neurology team yesterday. Tolerating diet, ambulating well otherwise. O: VS - see below PHYSICAL EXAMINATION: GENERAL: lying in bed, answering questions appropriately. He has a bandage on the side of his head; otherwise in no acute distress HEENT: Pupils are equal, round, react to light. Extraocular muscles are int act. NECK: Supple. No thyromegaly. LUNGS: Clear to auscultation bilaterally. CARDIOVASCULAR: S1, S2 heard. No rubs or gallops. ABDOMEN: Soft, nontender, nondistended. Normal bowel sounds. No rebound or guarding. MUSCULOSKELETAL: No lower extremity edema bilaterally. NEUROLOGIC: No focal deficits. EEG June 14, 2018: IMPRESSION: Abnormal electroencephalogram due to: moderate diffuse slowing. COMMENT: The slowing of the background indicates moderate, diffuse cortical dysfunction of nonspecific etiology. ASSESSMENT AND PLAN: 63-year-old male coming in with seizure activity 2 sep arate times before admission with positive methamphetamine and cocaine use, and not taking his seizure medicines for at least the last 2 weeks. 1. Seizure activity-again one possible event occurred yesterday of seizure activity, none presently overnight or today, seen by neurology team -For now neuro checks every 4 hours. -Follow-up recommendations from neurology consult. -Continue Keppra PO for now. Ativan p.r.n. breakthrough seizures. - Also, continue Dilantin for now. 2. History of hypertension. Blood pressure is stable. - Continue hydralazine p.r.n. -Started yesterday on low-dose Norvasc, continue for now, also try to get the list of the patient's home blood pressure medications as well. 3. Deep venous thrombosis prophylaxis, heparin subcutaneously. Result Diagram: 06/15/18 0555 06/15/18 0554 Results 24hrs Laboratory Tests Test 06/14/18 14:47 06/15/18 05:54 06/15/18 05:55 Phenytoin (Dilantin) Level 11.4 9.0 L Sodium Level 140 Potassium Level 3.7 Chloride Level 104 Carbon Dioxide Level 26 Anion Gap 10 Blood Urea Nitrogen 12 Creatinine 0.82 Est Glomerular Filtrat Rate mL/min > 60 Glucose Level 78 Calcium Level 8.8 White Blood Count 4.1 L Red Blood Count 4.73 Hemoglobin 12.9 L Hematocrit 40.5 L Mean Corpuscular Volume 85.6 Mean Corpuscular Hemoglobin 27.3 L Mean Corpuscular Hemoglobin Concent 31.9 L Red Cell Distribution Width 12.8 Platelet Count 155 # Mean Platelet Volume 11.4 H Immature Granulocytes % 0.500 H Neutrophils % 46.9 Lymphocytes % 36.9 Monocytes % 11.8 H Eosinophils % 3.4 Basophils % 0.5 Nucleated Red Blood Cells % 0.0 Immature Granulocytes # 0.020 Neutrophils # 1.9 Lymphocytes # 1.5 Monocytes # 0.5 Eosinophils # 0.1 Basophils # 0.0 Nucleated Red Blood Cells # 0.0 Exam/Review of Systems Exam Vitals Vital Signs Date Temp Pulse Resp B/P (MAP) Pulse Ox O2 O2 Flow FiO2 Time Delivery Rate 06/15/18 98.0 80 20 141/89 96 Room Air 11:14 (106) 06/15/18 2.0 07:52 Intake and Output 06/14/18 06/14/18 06/15/18 1515:00 23:00 07:00 IntakeIntake Total 395 ml 700 ml 250 ml OutputOutput Total 1100 ml 650 ml BalanceBalance 395 ml -400 ml -400 ml Results Results 24hrs Laboratory Tests Test 06/14/18 14:47 06/15/18 05:54 06/15/18 05:55 Phenytoin (Dilantin) Level 11.4 9.0 L Sodium Level 140 Potassium Level 3.7 Chloride Level 104 Carbon Dioxide Level 26 Anion Gap 10 Blood Urea Nitrogen 12 Creatinine 0.82 Est Glomerular Filtrat Rate mL/min > 60 Glucose Level 78 Calcium Level 8.8 White Blood Count 4.1 L Red Blood Count 4.73 Hemoglobin 12.9 L Hematocrit 40.5 L Mean Corpuscular Volume 85.6 Mean Corpuscular Hemoglobin 27.3 L Mean Corpuscular Hemoglobin Concent 31.9 L Red Cell Distribution Width 12.8 Platelet Count 155 # Mean Platelet Volume 11.4 H Immature Granulocytes % 0.500 H Neutrophils % 46.9 Lymphocytes % 36.9 Monocytes % 11.8 H Eosinophils % 3.4 Basophils % 0.5 Nucleated Red Blood Cells % 0.0 Immature Granulocytes # 0.020 Neutrophils # 1.9 Lymphocytes # 1.5 Monocytes # 0.5 Eosinophils # 0.1 Basophils # 0.0 Nucleated Red Blood Cells # 0.0 Medications Medication Current Medications IV Flush (NS 3 ml) 3 ml PER PROTOCOL IV ; Start 06/13/18 at 18:00 Ondansetron HCl (Zofran Inj) 4 mg Q6H PRN IV NAUSEA/VOMITING; Start 06/13/18 at 18:00 Acetaminophen (Tylenol Tab) 650 mg Q6H PRN PO .PAIN 1-3 OR TEMP; Start 06/13/18 at 18:00 Acetaminophen/ Hydrocodone Bitart ([place] (5/325)) 1 tab Q6H PRN PO .MOD PAIN 4- 6; Start 06/13/18 at 18:00 Morphine Sulfate (morphine) 2 mg Q4H PRN IV .SEVERE PAIN 7-10 Last administered on 06/13/18at 19:45; Admin Dose 2 MG; Start 06/13/18 at 18:00 Docusate Sodium (Colace) 100 mg Q12H PRN PO .CONSTIPATION; Start 06/13/18 at 18:00 Magnesium Hydroxide (Milk Of Mag) 30 ml DAILY PRN PO .CONSTIPATION; Start 06/13/18 at 18:00 Heparin Sodium (Porcine) (Heparin (5000 Units/1ml)) 5,000 unit Q12 SC Last administered on 06/15/18at 08:17; Admin Dose 5,000 UNIT; Start 06/13/18 at 21:00 Lorazepam (Ativan) 0.5 mg Q6H PRN IV ANXIETY Last administered on 06/14/18at 13:37; Admin Dose 0.5 MG; Start 06/13/18 at 18:00 Albuterol/ Ipratropium (Duoneb) 3 ml Q4H RESP THERAPY PRN HHN SHORTNESS OF BREATH; Start 06/13/18 at 18:00 Hydralazine HCl (Apresoline) 10 mg Q6H PRN IV ELEVATED BLOOD PRESSURE; Start 06/13/18 at 18:00 Nitroglycerin (Nitroglycerin (Sl Tab) 0.4 Mg) 1 tab Q5M PRN SL ANGINA; Start 06/13/18 at 18:00 Phenytoin (Dilantin) 300 mg HS PO Last administered on 06/14/18at 20:42; Admin Dose 300 MG; Start 06/13/18 at 21:00 Amlodipine Besylate (Norvasc) 2.5 mg DAILY PO Last administered on 06/15/18at 09:57; Admin Dose 2.5 MG; Start 06/14/18 at 12:00 Levetiracetam (Keppra) 500 mg BID PO Last administered on 06/15/18at 08:16; Admin Dose 500 MG; Start 06/14/18 at 21:00 Lorazepam (Ativan) 1 mg Q6H PRN IV seizures; Start 06/14/18 at 14:00 MARC WHIPPLE Jun 15, 2018 11:44
[2018-06-15] MEDS ORDERED: PHENYTOIN 100 MG CAP PO STA (16:04)
--- NOTE | 2018-06-15 16:08 | CONS ---
Assessment/Plan Assessment/Plan Hospital Course 63 M c/ longstanding Hx of epilepsy and other comorbidities, who presents for evaluation following a seizure cluster... He reports recent medication noncompliance -- the likely underlying cause of his seizure cluster.. Head CT is unrevealing UDS - cocaine and amphetamines UA neg Mg, Na, Gluc, Phos wnl P: Increase Dilantin to 200mg bid; repeat level in am.. OK to continue Keppra 500mg bid for now...though his subtherapeutic Dilantin level on 06/15 suggests that he may not actually require dual AED Tx.. Ativan iv prn prolonged seizure of cluster Encourage sobriety Other management per primary Consultation Date/Type/Reason Admit Date/Time Jun 13, 2018 at 18:15 Type of Consult Neurology Reason for Consultation seizures Requesting Provider: MARC WHIPPLE Date/Time of Note DATE: 06/15/18 TIME: 16:02 24 HR Interval Summary Free Text/Dictation Continues acute care Exam Vital Signs Vitals Vital Signs Date Temp Pulse Resp B/P (MAP) Pulse Ox O2 O2 Flow FiO2 Time Delivery Rate 06/15/18 73 12:00 06/15/18 98.0 20 141/89 96 Room Air 11:14 (106) 06/15/18 2.0 07:52 Intake and Output 06/14/18 06/14/18 06/15/18 1515:00 23:00 07:00 IntakeIntake Total 395 ml 700 ml 250 ml OutputOutput Total 1100 ml 650 ml BalanceBalance 395 ml -400 ml -400 ml Exam PE: Gen Appearance: No Apparent Distress HEENT: Normocephalic; L eye swollen Cardiovascular: Regular rate Lungs: Clear bilaterally Abdomen: Soft Extremities: Dry NE: The patient was alert though somewhat disoriented. Language was normal. Fund of knowledge was adequate. Pupils were equal and reactive to light. There was no afferent pupillary defect. Visual vaughn were normal. Funduscopic examination was limited. Extra-ocular movements were full. Ptosis was absent. There was no nystagmus. Facial sensation was normal. Face was symmetric with normal strength. Hearing was intact. Palate movements were normal. Neck strength was normal. There was normal tongue bulk an d speed of movement. Tone was normal. Muscle bulk was normal. I did not see fasciculations. Arms and legs were strong. Vibration sensation was normal. Temperature and pinprick sensation was normal. Rapid alternating movements were normal. There was no dysmetria. There was no intention tremor. Gait was deferred due to bedrest. Arm and leg reflexes were symmetric. Sawant's sign was absent. Plantar responses were flexor. JUAN DUMAS Jun 15, 2018 16:08
[2018-06-15] MEDS: PHENYTOIN 100 MG CAP PO SCH (20:28)
[2018-06-16] VITALS (11 sets, daily range): BP systolic 127–160; BP diastolic 76–98; PULSE 71–84; RESP 16–20
[2018-06-16] MEDS: PHENYTOIN 100 MG CAP PO SCH ×2 (08:39→20:52)
[2018-06-16] MEDS: AMLODIPINE 2.5 MG TAB PO SCH (08:39)
[2018-06-16] MEDS: LEVETIRACETAM 500 MG TAB PO SCH ×2 (08:39→20:52)
[2018-06-16] MEDS: HEPARIN 5,000 UNIT/1 ML VIAL SC SCH ×2 (08:44→20:58)
--- NOTE | 2018-06-16 16:36 | CONS ---
Assessment/Plan Assessment/Plan Hospital Course 63 M c/ longstanding Hx of epilepsy and other comorbidities, who presents for evaluation following a seizure cluster... He reports recent medication noncompliance -- the likely underlying cause of his seizure cluster.. Head CT is unrevealing UDS - cocaine and amphetamines UA neg Mg, Na, Gluc, Phos wnl P: Continue Dilantin to 200mg bid, indefinitely OK to continue Keppra 500mg bid for now...though his subtherapeutic Dilantin level on 06/15 suggests that he may not actually require dual AED Tx.. Ativan iv prn prolonged seizure of cluster Encourage sobriety Other management per primary Consultation Date/Type/Reason Admit Date/Time Jun 13, 2018 at 18:15 Type of Consult Neurology Reason for Consultation seizures Requesting Provider: MARC WHIPPLE Date/Time of Note DATE: 06/16/18 TIME: 16:36 24 HR Interval Summary Free Text/Dictation Continues acute care Exam Vital Signs Vitals Vital Signs Date Temp Pulse Resp B/P (MAP) Pulse Ox O2 O2 Flow FiO2 Time Delivery Rate 06/16/18 81 16:20 06/16/18 98.2 16 157/94 94 15:39 (115) 06/16/18 Room Air 04:00 06/15/18 2.0 07:52 Intake and Output 06/15/18 06/15/18 06/16/18 1515:00 23:00 07:00 IntakeIntake Total 840 ml 500 ml BalanceBalance 840 ml 500 ml Exam Exam: PE: Gen Appearance: No Apparent Distress HEENT: Normocephalic; L eye swollen Cardiovascular: Regular rate Lungs: Clear bilaterally Abdomen: Soft Extremities: Dry NE: The patient was alert though somewhat disoriented. Language was normal. Fund of knowledge was adequate. Pupils were equal and reactive to light. There was no afferent pupillary defect. Visual vaughn were normal. Funduscopic examination was limited. Extra-ocular movements were full. Ptosis was absent. There was no nystagmus. Facial sensation was normal. Face was symmetric with normal strength. Hearing was intact. Palate movements were normal. Neck strength was normal. There was normal tongue bulk and speed of movement. Tone was normal. Muscle bulk was normal. I did not see fasciculations. Arms and legs were strong. Vibration sensation was normal. Temperature and pinprick sensation was normal. Rapid alternating movements were normal. There was no dysmetria. There was no i ntention tremor. Gait was deferred due to bedrest. Arm and leg reflexes were symmetric. Sawant's sign was absent. Plantar resp onses were flexor. SHELLI SCOTT NP Jun 16, 2018 16:36 JUAN DUMAS Jun 16, 2018 16:54
--- NOTE | 2018-06-16 17:17 | PN ---
Date/Time of Note Date/Time of Note DATE: 06/16/18 TIME: 17:16 Assessment/Plan VTE Prophylaxis Risk score (from Ns)>0 risk: 2 SCD applied (from Ns): Yes Pharmacological prophylaxis: heparin Lines/Catheters IV Catheter Type (from [facility]): [place] [facility] Urinary Cath still in place: No Assessment/Plan Assessment/Plan 63-year-old male coming in with seizure activity 2 separate times before admission with positive methamphetamine and cocaine use, and not taking his seizure medicines for at least the last 2 weeks. 1. Seizure activity- - Last event more than 24 hours ago -Follow-up recommendations from neurology consult. -Continue Keppra PO for now. Ativan p.r.n. breakthrough seizures. - Also, continue Dilantin for now. 2. History of hypertension. Blood pressure is stable. - Continue hydralazine p.r.n. -Started yesterday on low-dose Norvasc, continue for now, also try to get the list of the patient's home blood pressure medications as well. 3. Deep venous thrombosis prophylaxis, heparin subcutaneously. Dispo: Anticipate discharge in next 24-48 hours. Result Diagram: 06/16/18 0607 06/16/18 0604 Subjective 24 Hr Interval Summary Free Text/Dictation No more seizure-like activity in last 24 hours. Patient feeling okay, no acute complaints. Exam/Review of Systems Exam Vitals Vital Signs Date Temp Pulse Resp B/P (MAP) Pulse Ox O2 O2 Flow FiO2 Time Delivery Rate 06/16/18 81 16:20 06/16/18 98.2 16 157/94 94 15:39 (115) 06/16/18 Room Air 04:00 06/15/18 2.0 07:52 Intake and Output 06/15/18 06/15/18 06/16/18 1414:59 22:59 06:59 IntakeIntake Total 840 ml 500 ml BalanceBalance 840 ml 500 ml Exam GENERAL: lying in bed, answering questions appropriately. He has a bandage on the side of his head; otherwise in no acute distress HEENT: Pupils are equal, round, react to light. Extraocular muscles are intact. NECK: Supple. No thyromegaly. LUNGS: Clear to auscultation bilaterally. CARDIOVASCULAR: S1, S2 heard. No rubs or gallops. ABDOMEN: Soft, nontender, nondistended. Normal bowel sounds. No rebound or guarding. MUSCULOSKELETAL: No lower extremity edema bilaterally. NEUROLOGIC: No focal deficits. Results Results 24hrs Laboratory Tests Test 06/16/18 06:04 06/16/18 06:07 Sodium Level 140 Potassium Level 3.8 Chloride Level 105 Carbon Dioxide Level 27 Anion Gap 8 Blood Urea Nitrogen 13 Creatinine 0.77 Est Glomerular Filtrat Rate mL/min > 60 Glucose Level 85 Calcium Level 8.8 Phenytoin (Dilantin) Level 10.3 White Blood Count 3.7 L Red Blood Count 4.75 Hemoglobin 13.0 L Hematocrit 41.1 L Mean Corpuscular Volume 86.5 Mean Corpuscular Hemoglobin 27.4 L Mean Corpuscular Hemoglobin Concent 31.6 L Red Cell Distribution Width 12.4 Platelet Count 157 Mean Platelet Volume 11.4 H Immature Granulocytes % 0.500 H Neutrophils % 44.4 Lymphocytes % 37.0 Monocytes % 13.3 H Eosinophils % 4.3 Basophils % 0.5 Nucleated Red Blood Cells % 0.0 Immature Granulocytes # 0.020 Neutrophils # 1.6 Lymphocytes # 1.4 Monocytes # 0.5 Eosinophils # 0.2 Basophils # 0.0 Nucleated Red Blood Cells # 0.0 Medications Medication Current Medications IV Flush (NS 3 ml) 3 ml PER PROTOCOL IV ; Start 06/13/18 at 18:00 Ondansetron HCl (Zofran Inj) 4 mg Q6H PRN IV NAUSEA/VOMITING; Start 06/13/18 at 18:00 Acetaminophen (Tylenol Tab) 650 mg Q6H PRN PO .PAIN 1-3 OR TEMP; Start 06/13/18 at 18:00 Acetaminophen/ Hydrocodone Bitart ([place] (5/325)) 1 tab Q6H PRN PO .MOD PAIN 4- 6; Start 06/13/18 at 18:00 Docusate Sodium (Colace) 100 mg Q12H PRN PO .CONSTIPATION; Start 06/13/18 at 18:00 Magnesium Hydroxide (Milk Of Mag) 30 ml DAILY PRN PO .CONSTIPATION; Start 06/13/18 at 18:00 Heparin Sodium (Porcine) (Heparin (5000 Units/1ml)) 5,000 unit Q12 SC Last administered on 06/16/18at 08:44; Admin Dose 5,000 UNIT; Start 06/13/18 at 21:00 Lorazepam (Ativan) 0.5 mg Q6H PRN IV ANXIETY Last administered on 06/14/18 13:37; Admin Dose 0.5 MG; Start 06/13/18 at 18:00 Albuterol/ Ipratropium (Duoneb) 3 ml Q4H RESP THERAPY PRN HHN SHORTNESS OF BREATH; Start 06/13/18 at 18:00 Hydralazine HCl (Apresoline) 10 mg Q6H PRN IV ELEVATED BLOOD PRESSURE; Start 06/13/18 at 18:00 Nitroglycerin (Nitroglycerin (Sl Tab) 0.4 Mg) 1 tab Q5M PRN SL ANGINA; Start 06/13/18 at 18:00 Amlodipine Besylate (Norvasc) 2.5 mg DAILY PO Last administered on 06/16/18 08:39; Admin Dose 2.5 MG; Start 06/14/18 at 12:00 Levetiracetam (Keppra) 500 mg BID PO Last administered on 06/16/18 08:39; Admin Dose 500 MG; Start 06/14/18 at 21:00 Lorazepam (Ativan) 1 mg Q6H PRN IV seizures; Start 06/14/18 at 14:00 Phenytoin (Dilantin) 200 mg BID PO Last administered on 06/16/18 08:39; Admin Dose 200 MG; Start 06/15/18 at 21:00 FELIPA MCCORD MD Jun 16, 2018 17:17
[2018-06-17] VITALS (10 sets, daily range): BP systolic 137–154; BP diastolic 74–95; PULSE 76–93; RESP 16–20
[2018-06-17] MEDS: PHENYTOIN 100 MG CAP PO SCH (08:06)
[2018-06-17] MEDS: AMLODIPINE 2.5 MG TAB PO SCH (08:06)
[2018-06-17] MEDS: LEVETIRACETAM 500 MG TAB PO SCH (08:06)
[2018-06-17] MEDS: HEPARIN 5,000 UNIT/1 ML VIAL SC SCH (08:12)
[2018-06-17] MEDS ORDERED: PHEN300C2 PO (10:38)
[2018-06-17] MEDS ORDERED: AMLO-145 PO (10:38)
[2018-06-17] MEDS ORDERED: LEVE-5 PO (10:38)
--- NOTE | 2018-06-17 10:39 | PDOCDIS ---
Discharge Instructions DIAGNOSIS Discharge Diagnosis Seizure CONDITION 2 [id number] Patient Condition: [id number] Good HOME CARE INSTRUCTIONS: [id number] Diet Instructions: [id number] Regular ACTIVITY: [id number] Activity Restrictions: [id number] No Restrictions FOLLOW UP/APPOINTMENTS Follow-up Plan 1. Take all medications as prescribed. 2. See your primary care doctor in 1-2 weeks. 3. If you have another seizure; or you cannot get your seizure medications; return to the emergency room. FELIPA MCCORD MD Jun 17, 2018 10:39
--- NOTE | 2018-06-17 14:35 | CONS ---
Assessment/Plan Assessment/Plan Hospital Course 63 M c/ longstanding Hx of epilepsy and other comorbidities, who presents for evaluation following a seizure cluster... He reports recent medication noncompliance -- the likely underlying cause of his seizure cluster.. Head CT is unrevealing UDS - cocaine and amphetamines UA neg Mg, Na, Gluc, Phos wnl P: Continue Dilantin to 200mg bid, indefinitely OK to continue Keppra 500mg bid for now...though his subtherapeutic Dilantin level on 06/15 suggests that he may not actually require dual AED Tx.. Ativan iv prn prolonged seizure of cluster Encourage sobriety Other management per primary Consultation Date/Type/Reason Admit Date/Time Jun 13, 2018 at 18:15 Type of Consult Neurology Reason for Consultation seizure Requesting Provider: MARC WHIPPLE Date/Time of Note DATE: 06/17/18 TIME: 14:35 24 HR Interval Summary Free Text/Dictation Continues acute care Exam Vital Signs Vitals Vital Signs Date Temp Pulse Resp B/P (MAP) Pulse Ox O2 O2 Flow FiO2 Time Delivery Rate 06/17/18 98.9 87 20 154/95 99 12:38 (114) 06/16/18 Room Air 04:00 06/15/18 2.0 07:52 Intake and Output 06/16/18 06/16/18 06/17/18 1515:00 23:00 07:00 IntakeIntake Total 800 ml 700 ml OutputOutput Total 600 ml 1200 ml BalanceBalance 200 ml -500 ml Exam Exam: PE: Gen Appearance: No Apparent Distress HEENT: Normocephalic; L eye swollen Cardiovascular: Regular rate Lungs: Clear bilaterally Abdomen: Soft Extremities: Dry NE: The patient was alert though somewhat disoriented. Language was normal. Fund of knowledge was adequate. Pupils were equal and reactive to light. There was no afferent pupillary defect. Visual vaughn were normal. Funduscopic examination was limited. Extra-ocular m ovements were full. Ptosis was absent. There was no nystagmus. Facial sensation was normal. Face was symmetric with normal strength. Hearing was intact. Palate movements were normal. Neck strength was normal. There was normal tongue bulk and speed of movement. Tone was normal. Muscle bulk was normal. I did not see fasciculations. Arms and legs were strong. Vibration sensation was normal. Temperature and pinprick sensation was normal. Rapid alternating movements were normal. There was no dysmetria. There was no intention tremor. Gait was deferred due to bedrest. Arm and leg reflexes were symmetric. Sawant's sign was absent. Plantar responses were flexor. SHELLI SCOTT NP Jun 17, 2018 14:35 JUAN DUMAS Jun 17, 2018 16:12
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
== END 2018-06-17 16:12 | disposition home or self-care (01) | DRG 101 ==
LOC: E/R 13:41 → TEL 18:15 → 6WM 06-17 12:20
PROVIDERS: ADMIT Hospitalist; ATTEND Internal Medicine
DX: G40.909 Epilepsy, unspecified, not intractable, without status epilepticus (principal); I10 Essential (primary) hypertension; Z91.19 Patient's noncompliance with other medical treatment and regimen; Z59.0 Homelessness
CPT/HCPCS: 70450; 71045; 80048; 80053; 80061; 80164; 80185; 80307; 81001; 83036; 83735; 84100; 84439; 84443; 85025; 85610; 87081; 95819; 96374; 97161; J1165; J1644; J1953; J2060; J2270; J7040